=== PATIENT | female | born 1930 | race Caucasian/White ===

== ENCOUNTER 2016-04-20 16:29 | Emergency (ER) | payer OTHER, MEDICARE ==
[~2016-04-20] VITALS: Ht 152.4 cm; Wt 63.5 kg
[~2016-04-20 16:29] MED LIST: ASPIRIN81 M4 PO; ATORVASTATIN CA80 M1 PO; CARAFATE1 GM/10 M1 PO; CARAFATE1 GM/10 ML PO; HYDROXYZINE HCL25 MG PO; LISINOPRIL5 M1 PO; METOPROLOL SUCC25 M1 PO; OMEPRAZOLE20 M2 PO; ONDANSETRON ODT8 M1 PO; PROTONIX40 M3 PO; RISPERDAL0.25 MG PO; TRAZODONE HCL50 M1 PO; ZOFRAN ODT4 MG PO
--- NOTE | 2016-04-20 16:53 | ED DYSPNEA/ASTHMA COMPLAINT ---
History of Present Illness General Chief Complaint: Dyspnea (COPD, CHF, Other) Stated Complaint: SENT BY URGENT CARE IN [place] FOR SOB Source: patient, family Exam Limitations: no limitations Vital Signs & Intake/Output Vital Signs & Intake/Output Vital Signs Date Time Temp Pulse Resp B/P Pulse O2 O2 Flow FiO2 Ox Delivery Rate 04/20 1640 98.4 69 18 103/62 98 Room Air Allergies Coded Allergies: Penicillins (ANAPHYLAXIS 04/20/16) Reconcile Medications Albuterol Sulfate (Proair Hfa) 90 MCG HFA.AER.AD 2 PUF INH Q4-6 PRN PRN DYSPNEA DISPENSE WITH SPACER Aspirin (Aspirin*) 81 MG TAB.CHEW 1 TAB PO DAILY heart health Lisinopril 5 MG TABLET 1 TAB PO DAILY HEART Metoprolol Succinate 25 MG TAB 6.25 MG PO BID HEART Omeprazole 20 MG CAPSULE.DR 40 MG PO DAILY AC GERD Prednisolone Sod Phosphate 15 MG/5 ML (5 ML) SOLUTION 5 ML PO BID BRONCHITIS Sucralfate (Carafate) 1 GRAM/10 ML ORAL.SUSP 10 ML PO BID CONSTIPATION 1 hour before food Triage Note: PT TO TRIAGE FROM URGENT CARE FOR UDNORMAL CHEST XRAY AND SOB/WHEEZING WITH EXERTION. PT HAS CHEST XRAY DISC WITH HER. NO RESP DISTRESS NOTED IN TRIAGE. VSS. O2SAT 98 ON RA. PT DENIES ANY PAIN. PT TO ROOM4 BY WHEELCHAIR. Triage Nurses Notes Reviewed? yes Onset: Gradual Duration: day(s): (few) Timing: recent history Severity: mild Activities at Onset: none Modifying Factors: Worsens With: movement. Associated Symptoms: cough, wheezing HPI: This is an 86-year-old female who presents with her family from an urgent care for evaluation of an outpatient chest x-ray. He took her there for some shortness of breath and wheezy wheezing noted on exertion. According to the PA did a chest x-ray which was concerning for pneumothorax. He told me that there was a hypodensity that he was concerned about. Patient with known history of hiatal hernia. Upon evaluation in the emergency department patient states that she does not know why she is here. The daughter states that she was at her adult daycare program and they told her that she had some audible wheezing today. Past History Travel History Traveled to [place] past 21 day No Medical History Any Pertinent Medical History? see below for history Neurological: dementia EENT: UNKNOWN Cardiovascular: CAD Respiratory: UNKNOWN Gastrointestinal: GERD, hiatal hernia Hepatic: UNKNOWN Renal: UNKNOWN Musculoskeletal: UNKNOWN Psychiatric: UNKNOWN Endocrine: UNKNOWN Blood Disorders: UNKNOWN Cancer(s): UNKNOWN HOME MAKER/Reproductive: UNKNOWN History of MRSA: No History of VRE: No History of CDIFF: No Surgical History Surgical History: non-contributory Psychosocial History Who do you live with Daughter What is your primary language Albanian Tobacco Use: Never used Family History Hx Contributory? No Review of Systems Review of Systems Constitutional: Denies: fever. EENTM: Reports: no symptoms. Respiratory: Reports: cough, short of breath. Cardiovascular: Denies: chest pain, palpitations. GI: Denies: abdominal pain, diarrhea, vomiting. Genitourinary: Denies: discharge, dysuria. Musculoskeletal: Reports: no symptoms. Skin: Reports: no symptoms. Neurological/Psychological: Reports: no symptoms. Hematologic/Endocrine: Denies: bruising, bleeding, polyuria, polydipsia. Immunologic/Allergic: Denies: splenectomy. All Other Systems: Reviewed and Negative Physical Exam Physical Exam General Appearance: alert, awake, mild distress, thin Head: atraumatic, normal appearance Eyes: Bilateral: normal appearance, PERRL, EOMI. Ears, Nose, Throat: normal pharynx, normal ENT inspection, hearing grossly normal Neck: normal inspection, supple, full range of motion Respiratory: decreased breath sounds, wheezing (end expiratory ) Cardiovascular: regular rate/rhythm Peripheral Pulses: 2+ radial (R), 2+ radial (L) Gastrointestinal: soft, non-tender Extremities: normal inspection, normal range of motion, no edema Neurologic/Psych: awake, alert, oriented x 1 Skin: intact Core Measures ACS in differential dx? No Severe Sepsis Present: No Septic Shock Present: No Progress Differential Diagnosis: bronchitis, CHF, COPD, pulmonary embolism, pneumothorax, URI Plan of Care: Orders Procedure Date/time Status RT ED ORDERS 04/20 1716 Active EKG 04/20 1631 Active Chest x-ray was uploaded in the emergency department shows large hiatal hernia with an air-fluid level, no evidence of pneumothorax. DUONEB, DECADRON GIVEN. PATIENT AMBUATORY IN THE ED WITHOUT DISTRESS, ANXIOUS TO LEAVE. DISCUSSED CARE PLAN WITH HER FAMILY MEMBERS. SHE WILL STAY HOME FROM ADULT DAYCARE TOMORROW AND FOLLOW UP WITH PCP. THEY WILL RETURN HER FOR FEVER, CHEST PAIN OR WORSENING SHORTNESS OF BREATH. RX SENT TO PHARMACY. ([facility]) Initial ED EKG: SINUS BRADYCARDIA Departure Departure Time of Disposition: 1807 Disposition: HOME OR SELF CARE Condition: Stable Clinical Impression Primary Impression: Bronchitis Referrals: UNKNOWN Additional Instructions: Have your mother take the prescriptions as directed. Please follow up with her doctor in the office. Return immediately to the ER for any worsening shortness of breath, fever, cough, chills. Departure Forms: Customer Survey General Discharge Information Prescriptions: Current Visit Scripts Albuterol Sulfate (Proair Hfa) 2 PUF INH Q4-6 PRN PRN DYSPNEA #1 INHAL DISPENSE WITH SPACER Prednisolone Sod Phosphate 5 ML PO BID #30 ML Critical Care Note Critical Care Note Critical Care Time: non-applicable
[2016-04-20] MEDS ORDERED: PROAIR HFA8.5 GM INH (18:08)
[2016-04-20] MEDS ORDERED: PREDNISOLO15 MG/5 M3 PO (18:08)
[2016-04-20 18:36] VITALS: BP 108/64
== END 2016-04-20 18:37 ==
LOC: ERH 16:29
DX: J40 Bronchitis, not specified as acute or chronic (principal)
CPT/HCPCS: 1263; 93005; 93010

== ENCOUNTER 2016-06-11 15:00 | Emergency (ER) | payer OTHER, MEDICARE ==
[~2016-06-11] VITALS: Ht 160 cm; Wt 56.7 kg
[~2016-06-11 15:00] MED LIST changes: +PREDNISOLO15 MG/5 M3 PO; +PROAIR HFA8.5 GM INH
--- NOTE | 2016-06-11 15:21 | NUR ---
86 Y/O FEMALE SENT FROM DR HARRIS'S OFFICE FOR EVAL OF RUQ PAIN SINCE TODAY. FAMILY MEMBER STATES SHE PICKED PT UP TODAY FROM [facility] AND SHE WAS INFORMED PT HAD BEEN C/O RUQ PAIN. NO KNOWN N/V/D. AFEBRILE. PT APPEARS UNCOMFORTABLE IN TRIAGE GUARDING RUQ. TAKEN FOR EKG/BLOODWORK
--- NOTE | 2016-06-11 15:50 | ED GI/GU/ABDOMINAL COMPLAINT ---
History of Present Illness General Chief Complaint: Abdominal Pain/Flank Pain Stated Complaint: RUQ ABD PAIN, SENT DOWN BY DR. HARRIS Source: patient, family, old records Exam Limitations: no limitations Vital Signs & Intake/Output Vital Signs & Intake/Output Vital Signs Date Time Temp Pulse Resp B/P Pulse O2 O2 Flow FiO2 Ox Delivery Rate 06/11 1506 98.5 73 16 141/76 95 Room Air Allergies Coded Allergies: Penicillins (ANAPHYLAXIS 04/20/16) Reconcile Medications Albuterol Sulfate (Proair Hfa) 90 MCG HFA.AER.AD 2 PUF INH Q4-6 PRN PRN DYSPNEA DISPENSE WITH SPACER Aspirin (Aspirin*) 81 MG TAB.CHEW 1 TAB PO DAILY heart health Lisinopril 5 MG TABLET 1 TAB PO DAILY HEART Metoprolol Succinate 25 MG TAB 6.25 MG PO BID HEART Omeprazole 20 MG CAPSULE.DR 40 MG PO DAILY AC GERD Prednisolone Sod Phosphate 15 MG/5 ML (5 ML) SOLUTION 5 ML PO BID BRONCHITIS Sucralfate (Carafate) 1 GRAM/10 ML ORAL.SUSP 10 ML PO BID CONSTIPATION 1 hour before food Triage Note: 86 Y/O FEMALE SENT FROM DR HARRIS'S OFFICE FOR EVAL OF RUQ PAIN SINCE TODAY. FAMILY MEMBER STATES SHE PICKED PT UP TODAY FROM [facility] AND SHE WAS INFORMED PT HAD BEEN C/O RUQ PAIN. NO KNOWN N/V/D. AFEBRILE. PT APPEARS UNCOMFORTABLE IN TRIAGE GUARDING RUQ. TAKEN FOR EKG/BLOODWORK Triage Nurses Notes Reviewed? yes ? N Is pt currently ? No HPI: Patient was at her cardiology appointment for routine follow-up when she began having right upper quadrant pain. Patient was sent out of the emergency department for evaluation. The patient has dementia so it is difficult to ascertain exact history other than to state that she has right upper quadrant pain. Patient is unsure how long its been going on. Patient states that the pain does not go anywhere. Unknown aggravating or mitigating factors. Patient winces to palpation but cannot give any pain scale number. Past History Travel History Traveled to [place] past 21 day No Medical History Any Pertinent Medical History? see below for history Neurological: dementia EENT: UNKNOWN Cardiovascular: CAD Respiratory: UNKNOWN Gastrointestinal: GERD, hiatal hernia Hepatic: UNKNOWN Renal: UNKNOWN Musculoskeletal: UNKNOWN Psychiatric: UNKNOWN Endocrine: UNKNOWN Blood Disorders: UNKNOWN Cancer(s): UNKNOWN VICE PRESIDENT FOR PHILANTHROPY/Reproductive: UNKNOWN History of MRSA: No History of VRE: No History of CDIFF: No Surgical History Surgical History: non-contributory Psychosocial History Who do you live with Daughter What is your primary language Uzbek Tobacco Use: Never used ETOH Use: denies use Illicit Drug Use: denies illicit drug use Family History Hx Contributory? No Review of Systems Review of Systems Constitutional: Reports: no symptoms. EENTM: Reports: no symptoms. Respiratory: Reports: no symptoms. Cardiovascular: Reports: no symptoms. GI: Reports: see HPI, abdominal pain. Genitourinary: Reports: no symptoms. Musculoskeletal: Reports: no symptoms. Skin: Reports: no symptoms. Neurological/Psychological: Reports: no symptoms. Hematologic/Endocrine: Reports: no symptoms. Immunologic/Allergic: Reports: no symptoms. All Other Systems: Reviewed and Negative Physical Exam Physical Exam General Appearance: well developed/nourished, alert, awake, mild distress Head: atraumatic, normal appearance Eyes: Bilateral: PERRL, EOMI. Ears, Nose, Throat, Mouth: hearing grossly normal, moist mucous membrane Neck: normal inspection, supple, full range of motion Respiratory: normal breath sounds, chest non-tender, no respiratory distress, lungs clear Cardiovascular: regular rate/rhythm, normal peripheral pulses Gastrointestinal: normal bowel sounds, soft, tenderness (RUQ), + OLIVER'S, PATIENT ALSO HAS SLIGHT TENDERNESS TO DEEP PALPATION IN THE RIGHT LOWER QUADRANT. tHERE IS NO GUARDING OR REBOUND IN THE RIGHT LOWER QUADRANT. Back: normal inspection, normal range of motion Extremities: normal range of motion Neurologic/Psych: no motor/sensory deficits, awake, alert, oriented x 3, normal mood/affect Skin: intact, normal color, warm/dry Core Measures ACS in differential dx? No Severe Sepsis Present: No Septic Shock Present: No Progress Differential Diagnosis: appendicitis, biliary colic, cholecystitis, diverticulitis, gastritis, hepatitis, ischemic bowel, inflamm bowel dis, pancreatitis Plan of Care: Orders Procedure Date/time Status Intake & Output 06/11 1709 Active TROPONIN LEVEL 06/11 1512 Complete LIPASE 06/11 1512 Complete COMPREHENSIVE METABOLIC PANEL 06/11 1512 Complete CBC WITHOUT DIFFERENTIAL 06/11 1512 Complete AMYLASE 06/11 1512 Complete EKG 06/11 1512 Active Laboratory Tests 06/11/16 1533: Anion Gap 7, Estimated GFR > 60, BUN/Creatinine Ratio 32.9 H, Glucose 88, Calcium 9.2, Total Bilirubin 0.4, AST 34, ALT 41, Alkaline Phosphatase 93, Troponin I < 0.01, Total Protein 6.4, Albumin 3.4 L, Globulin 3.0, Albumin/ Globulin Ratio 1.1, Amylase < 30 L, Lipase 139, CBC w Diff NO MAN DIFF REQ, RBC 4.41, MCV 96.6, MCH 32.0 H, RDW 14.2, MPV 9.6, Gran % 62.7, Lymphocytes % 23.7, Monocytes % 11.3 H, Eosinophils % 1.7, Basophils % 0.6, Absolute Granulocytes 4.0, Absolute Lymphocytes 1.5, Absolute Monocytes 0.7 H, Absolute Eosinophils 0.1, Absolute Basophils 0, PUBS MCHC 33.2 Diagnostic Imaging: Viewed by Me: Ultrasound. Discussed w/RAD: Ultrasound. Radiology Impression: SEE BELOW, PATIENT: CONCEPCION PAT PRESENT AGE: 86 PATIENT ACCOUNT NO: [id number] : [birth year] LOCATION: [facility] ORDERING PHYSICIAN: MAGDALENA MAR MD SERVICE DATE: 06/11/16 EXAM TYPE: CAT - CT ABD & PELVIS W/O IV CONTRAS EXAMINATION: CT ABDOMEN AND PELVIS WITHOUT CONTRAST CLINICAL INFORMATION: Right lower quadrant abdominal tenderness. Evaluate for appendicitis. COMPARISON: Limited abdominal ultrasound of 06/11/2016, upper GI series of 06/06/[address] abdomen and pelvis of 12/23/2015. TECHNIQUE: Multidetector volumetric imaging was performed from the superior aspect of the liver through the pubic symphysis. Sagittal and coronal reformatted images were obtained on the technologist's workstation. DLP: 311.66 mGy-cm FINDINGS: OFFICE SERVICES ASSOCIATE: Reverse S-shaped scoliosis of the visualized thoracolumbar spine is noted. There are scattered hyperdensities in the pelvis as well as in the left hemiabdomen with the most prominent hyperdensity overlying the right lower abdominal quadrant representing residual barium. Multiple streaking artifacts are present from this residual barium somewhat limiting the evaluation. LUNG BASES: There is a large hiatal hernia containing almost the entire stomach and a significant portion of the transverse colon. A portion of the pancreas is also seen in the hernial sac. Trace left pleural effusion is a stable finding. Bibasilar subsegmental atelectasis. No pericardial effusion. LIVER, GALLBLADDER, AND BILIARY TREE: The liver is normal in size, shape, and attenuation. No focal hepatic lesion or biliary ductal dilatation is present. The gallbladder is unremarkable with no evidence of radiopaque gallstones, gallbladder wall thickening, or obvious pericholecystic inflammatory changes. PANCREAS: A portion of the pancreas is herniated into the chest, otherwise unremarkable. SPLEEN: Unremarkable. ADRENAL GLANDS: Unremarkable. KIDNEYS AND URETERS: The kidneys are normal in size, shape, and attenuation. No hydronephrosis, hydroureter, or calculi are seen. No perinephric stranding. BLADDER: Underdistended, however, unremarkable. GASTROINTESTINAL TRACT: Extensive diverticulosis of the descending colon and sigmoid colon with residual barium in multiple diverticula. Residual barium is also noted in the terminal ileum. Streaking artifacts from the residual barium limit the evaluation. The appendix is normal (series 2, image 67, sagittal series 601, images 85 through 82. No pericecal inflammatory changes are noted. No abnormal bowel dilatation. No evidence of colonic wall thickening or pericolonic fat stranding. ABDOMINAL WALL: No significant hernia is appreciated. LYMPH NODES: No pathologically enlarged lymph nodes are noted. VASCULAR: Moderate to extensive calcific atherosclerosis of the aorta and mild calcific atherosclerosis of the iliac arteries. No aneurysmal dilatation. PELVIC VISCERA: The uterus is not seen, either significantly atrophic or surgically absent. No adnexal mass. OSSEOUS STRUCTURES: Diffuse osseous demineralization. Moderate compression fracture of T11 is stable since the previous CT. Axwkdbsx-qj-shyurl compression fracture of T9 is a new finding compared to the previous CT. Diffuse facet arthropathy is noted. IMPRESSION: 1. Streaking artifacts from the residual barium into the terminal ileum and colon limits the evaluation, however, a normal appendix is seen. No pericecal inflammatory changes are noted. No acute abnormalities identified to explain patient's symptoms. 2. No evidence of radiopaque urinary tract calculi or obstructive uropathy. 3. Large hiatal hernia containing stomach , colon and a portion of the pancreas is a known finding. 4. Frsatpip-xg-yagpqh compression fracture of the T9 body is of indeterminate age, new compared to the previous CT of 12/23/2015. DICTATED BY: BRENDA BRITT MD DATE/TIME DICTATED:2019 TORSION SPRING COILING MACHINE SETTER:MELODY DATE/TIME TRANSCRIBED:06/11/162019 CONFIDENTIAL, DO NOT COPY WITHOUT APPROPRIATE AUTHORIZATION. <Electronically signed in Other Vendor System> SIGNED BY: BRENDA BRITT MD 06/11/162057 Initial ED EKG: NSR, nonspecific ST T wave chg Prior EKG: unchanged Comments: PATIENT: CONCEPCION PAT PRESENT AGE: 86 PATIENT ACCOUNT NO: [id number] : [birth year] LOCATION: [facility] ORDERING PHYSICIAN: MAGDALENA MAR MD SERVICE DATE: 06/11/16 EXAM TYPE: US - US-LIMITED ABDOMEN EXAMINATION: US ABDOMEN LIMITED CLINICAL INFORMATION: Right upper quadrant pain; question cholecystitis. COMPARISON: CT abdomen and pelvis dated 12/23/2015. TECHNIQUE: Real-time imaging of the right upper quadrant abdominal viscera. FINDINGS: PANCREAS: Poorly seen secondary to overlapping the bowel gas. LIVER: Limited visualization secondary to overlapping bowel gas. The liver demonstrates normal size, contour and echogenicity. No focal lesion or intrahepatic biliary duct dilatation. GALLBLADDER: Normal. The gallbladder is physiologically distended without evidence of stones, sludge, polyps, wall thickening or pericholecystic fluid. COMMON BILE DUCT: Normal in caliber measuring 0.3 cm in diameter. RIGHT KIDNEY: Normal. No hydronephrosis. No renal calculi or focal parenchymal lesions. The kidney measures 8.9 cm in maximum dimension. FREE FLUID: None. IMPRESSION: Unremarkable limited abdominal ultrasound examination. Visualization, in particular of the liver, common bile duct and pancreas, is suboptimal due to overlapping bowel gas. DICTATED BY: SURAJ TABARES MD DATE/TIME DICTATED:06/11/161619 TORSION SPRING COILING MACHINE SETTER:MELODY DATE/TIME TRANSCRIBED:06/11/161619 CONFIDENTIAL, DO NOT COPY WITHOUT APPROPRIATE AUTHORIZATION. <Electronically signed in Other Vendor System> SIGNED BY: SURAJ TABARES MD 06/11/161624 Departure Departure Disposition: HOME OR SELF CARE Condition: Stable Clinical Impression Primary Impression: Upper abdominal pain, unspecified Referrals: NITO HUDDLESTON MD (PCP/Family) Additional Instructions: RETURN IF SYMPTOMS WORSEN OR FOR ANY CONCERNS Departure Forms: Customer Survey General Discharge Information
[2016-06-11 15:54] LABS: ABSOLUTE BASOPHIL COUNT 0 /CUMM (0.0-0.2); ABSOLUTE EOSINOPHIL COUNT 0.1 /CUMM (0.0-0.7); ABSOLUTE LYMPH COUNT 1.5 /CUMM (1.2-3.4); ABSOLUTE MONOCYTE COUNT 0.7 /CUMM (0.10-0.60); BASOPHIL % 0.6 % (0.0-2.0); EOSINOPHIL % 1.7 % (0-5); GRANULOCYTE % 62.7 % (42.2-75.2); HEMATOCRIT 42.6 % (37-47); MEAN CORPUSCULAR HGB CONC 33.2 G/DL (33.0-37.0); MEAN CORPUSCULAR VOLUME 96.6 FL (81.0-99.0); MEAN PLATELET VOLUME 9.6 FL (7.4-10.4); PLATELET COUNT 205 /CUMM (130-400); RBC DISTRIBUTION WIDTH 14.2 % (11.5-14.5); RED BLOOD CELL CT 4.41 /CUMM (4.20-5.40); WHITE BLOOD CELL COUNT 6.4 /CUMM (4.8-10.8)
--- NOTE | 2016-06-11 16:22 | NUR ---
TO AND FROM US. PLACED MON MONITOR, SINUS RHYTHM. ALERT, C/O RUQ PAIN, DAUGHTER AT BEDSIDE. EXAMINED BY DR. MAR.
--- NOTE | 2016-06-11 16:25 | ULTRASOUND REPORT ---
EXAMINATION: US ABDOMEN LIMITED CLINICAL INFORMATION: Right upper quadrant pain; question cholecystitis. COMPARISON: CT abdomen and pelvis dated 12/23/2015. TECHNIQUE: Real-time imaging of the right upper quadrant abdominal viscera. FINDINGS: PANCREAS: Poorly seen secondary to overlapping the bowel gas. LIVER: Limited visualization secondary to overlapping bowel gas. The liver demonstrates normal size, contour and echogenicity. No focal lesion or intrahepatic biliary duct dilatation. GALLBLADDER: Normal. The gallbladder is physiologically distended without evidence of stones, sludge, polyps, wall thickening or pericholecystic fluid. COMMON BILE DUCT: Normal in caliber measuring 0.3 cm in diameter. RIGHT KIDNEY: Normal. No hydronephrosis. No renal calculi or focal parenchymal lesions. The kidney measures 8.9 cm in maximum dimension. FREE FLUID: None. IMPRESSION: Unremarkable limited abdominal ultrasound examination. Visualization, in particular of the liver, common bile duct and pancreas, is suboptimal due to overlapping bowel gas.
--- NOTE | 2016-06-11 17:11 | NUR ---
PER DAUGHTER, PT HAS DEMENTA, HAS ANGER EPSIODES FREQUENTLY AT HOME, ANGRY ABOUT BEING IN HOSPITAL. DENIES PAIN.
--- NOTE | 2016-06-11 17:24 | NUR ---
AGITATE, PULLED OUT IV , RESTARTED. PULLING GOWN OFF AND ATTEMPTING TO GET OOB.
--- NOTE | 2016-06-11 17:58 | NUR ---
TO CT SCAN, PULLED OUT IV IN CT SCAN.
--- NOTE | 2016-06-11 18:15 | NUR ---
RETURNED FROM CT SCAN.
--- NOTE | 2016-06-11 18:28 | NUR ---
SITTING UP IN CHAIR.
--- NOTE | 2016-06-11 20:30 | NUR ---
ATTEMPTED TWICE TO CALLED CAT SCAN TO SEE WHY RESULTS HAVE NOT BEEN READ, CHARGE NURSE JOSE MADE AWARE
--- NOTE | 2016-06-11 20:40 | NUR ---
CHARGE NURSE JOSE AT BEDSIDE TO EXPLAIN WHY CAT SCAN RESULTS ARE STILL PENDING.
--- NOTE | 2016-06-11 20:58 | CT SCAN REPORT ---
EXAMINATION: CT ABDOMEN AND PELVIS WITHOUT CONTRAST CLINICAL INFORMATION: Right lower quadrant abdominal tenderness. Evaluate for appendicitis. COMPARISON: Limited abdominal ultrasound of 06/11/2016, upper GI series of 06/06/[address] abdomen and pelvis of 12/23/2015. TECHNIQUE: Multidetector volumetric imaging was performed from the superior aspect of the liver through the pubic symphysis. Sagittal and coronal reformatted images were obtained on the technologist's workstation. DLP: 311.66 mGy-cm FINDINGS: SET UP AND LAY OUT INSPECTOR: Reverse S-shaped scoliosis of the visualized thoracolumbar spine is noted. There are scattered hyperdensities in the pelvis as well as in the left hemiabdomen with the most prominent hyperdensity overlying the right lower abdominal quadrant representing residual barium. Multiple streaking artifacts are present from this residual barium somewhat limiting the evaluation. LUNG BASES: There is a large hiatal hernia containing almost the entire stomach and a significant portion of the transverse colon. A portion of the pancreas is also seen in the hernial sac. Trace left pleural effusion is a stable finding. Bibasilar subsegmental atelectasis. No pericardial effusion. LIVER, GALLBLADDER, AND BILIARY TREE: The liver is normal in size, shape, and attenuation. No focal hepatic lesion or biliary ductal dilatation is present. The gallbladder is unremarkable with no evidence of radiopaque gallstones, gallbladder wall thickening, or obvious pericholecystic inflammatory changes. PANCREAS: A portion of the pancreas is herniated into the chest, otherwise unremarkable. SPLEEN: Unremarkable. ADRENAL GLANDS: Unremarkable. KIDNEYS AND URETERS: The kidneys are normal in size, shape, and attenuation. No hydronephrosis, hydroureter, or calculi are seen. No perinephric stranding. BLADDER: Underdistended, however, unremarkable. GASTROINTESTINAL TRACT: Extensive diverticulosis of the descending colon and sigmoid colon with residual barium in multiple diverticula. Residual barium is also noted in the terminal ileum. Streaking artifacts from the residual barium limit the evaluation. The appendix is normal (series 2, image 67, sagittal series 601, images 85 through 82. No pericecal inflammatory changes are noted. No abnormal bowel dilatation. No evidence of colonic wall thickening or pericolonic fat stranding. ABDOMINAL WALL: No significant hernia is appreciated. LYMPH NODES: No pathologically enlarged lymph nodes are noted. VASCULAR: Moderate to extensive calcific atherosclerosis of the aorta and mild calcific atherosclerosis of the iliac arteries. No aneurysmal dilatation. PELVIC VISCERA: The uterus is not seen, either significantly atrophic or surgically absent. No adnexal mass. OSSEOUS STRUCTURES: Diffuse osseous demineralization. Moderate compression fracture of T11 is stable since the previous CT. Obisgvfy-ix-xarasu compression fracture of T9 is a new finding compared to the previous CT. Diffuse facet arthropathy is noted. IMPRESSION: 1. Streaking artifacts from the residual barium into the terminal ileum and colon limits the evaluation, however, a normal appendix is seen. No pericecal inflammatory changes are noted. No acute abnormalities identified to explain patient's symptoms. 2. No evidence of radiopaque urinary tract calculi or obstructive uropathy. 3. Large hiatal hernia containing stomach, colon and a portion of the pancreas is a known finding. 4. Nybahhfn-dz-afnbpg compression fracture of the T9 body is of indeterminate age, new compared to the previous CT of 12/23/2015.
[2016-06-11 21:10] VITALS: BP 152/80
--- NOTE | 2016-06-11 21:29 | NUR ---
PT CLEARED FOR DISHCARGE BY . PT DAUGHTER VERBALIZED DC UNDERSTANDING.
== END 2016-06-11 21:30 ==
LOC: ERH 15:00 → ERHI 16:01 → ERH 21:30
PROVIDERS: Emergency Medicine
DX: R10.11 Right upper quadrant pain (principal)
CPT/HCPCS: 74176; 93005; 93010; 96374; 96375; J0131

== ENCOUNTER 2016-06-30 15:24 | Emergency (ER) | payer OTHER, MEDICARE ==
[~2016-06-30] VITALS: Ht 160 cm; Wt 56.7 kg
--- NOTE | 2016-06-30 15:56 | ED UPPER/LOWER EXTREMITY COMPL ---
History of Present Illness General Chief Complaint: Lower Extremity Problems Stated Complaint: rt extr swelling Source: patient, family, old records Exam Limitations: dementia Vital Signs & Intake/Output Vital Signs & Intake/Output Vital Signs Date Time Temp Pulse Resp B/P Pulse O2 O2 Flow FiO2 Ox Delivery Rate 06/30 1732 96.0 73 12 144/65 98 Room Air 06/30 1653 Room Air 06/30 1527 98.3 74 18 130/74 95 Room Air ED Intake and Output 07/01 0000 06/30 1200 Intake Total Output Total Balance Patient 125 lb Weight Allergies Coded Allergies: Penicillins (ANAPHYLAXIS 04/20/16) Reconcile Medications Cholecalciferol (Vitamin D3) (Unknown Strength) TABLET (Unknown Dose) PO DAILY SUPPLEMENT (Reported) Donepezil HCl (Donepezil HCl Odt) (Unknown Strength) TAB.RAPDIS (Unknown Dose) UNKNOWN (Reported) Methylcellulose (Citrucel) (Unknown Strength) TABLET (Unknown Dose) PO DAILY SUPPLEMENT (Reported) Mirtazapine 7.5 MG TABLET 1 TAB PO QPM APPETITE/ANXIETY (Reported) Sennosides (Senokot) 8.6 MG TABLET 1 TAB PO DAILY GI (Reported) Triage Note: PT TO TRIAGE WITH FAMILY , DAUGHTER STATES THAT SHE NOTED SOME SWELLING TO RLE FROM KNEE DOWN , PT OFFERS NO COMPLAINTS BUT HAS HISTORY OF DEMENTIA. PT NOTED WITH SWELLING Triage Nurses Notes Reviewed? yes Onset: Abrupt Duration: day(s): (1) HPI: 86 year old female with history of dementia and coronary disease presents to the ER with a chief complaint per her daughter of right-sided knee pain and leg swelling. Daughter states she got a call from the nurse at the [facility] and stated that the mother's leg was swollen and painful. No trauma. No fever or chills. She states that the leg does not look very different than usual. He does complaint of some knee pain. She has a known history of osteoporosis. No previous history of DVT. Nurse Association was concerned that she might have a clot in her leg. Patient denies any chest pain or shortness of breath. She was active and for [place] and was walking without any difficulties. Past History Travel History Traveled to [place] past 21 day No Medical History Any Pertinent Medical History? see below for history Neurological: dementia EENT: UNKNOWN Cardiovascular: CAD Respiratory: UNKNOWN Gastrointestinal: GERD, hiatal hernia Hepatic: UNKNOWN Renal: UNKNOWN Musculoskeletal: UNKNOWN Psychiatric: UNKNOWN Endocrine: UNKNOWN Blood Disorders: UNKNOWN Cancer(s): UNKNOWN MOTOR POWER CONNECTOR/Reproductive: UNKNOWN History of MRSA: No History of VRE: No History of CDIFF: No Surgical History Surgical History: non-contributory Psychosocial History Who do you live with Daughter What is your primary language Russian Tobacco Use: Never used ETOH Use: denies use Illicit Drug Use: denies illicit drug use Family History Hx Contributory? No Review of Systems Review of Systems Constitutional: Denies: fever. EENTM: Reports: no symptoms. Respiratory: Denies: cough. Cardiovascular: Reports: peripheral edema. Denies: chest pain, palpitations. Gastrointestinal/Abdominal: Reports: no symptoms. Genitourinary: Reports: no symptoms. Musculoskeletal: Reports: joint pain. Denies: joint swelling. Skin: Denies: rash. Neurological/Psychological: Reports: no symptoms. Hematologic/Endocrine: Denies: bruising, bleeding, polyuria, polydipsia. Immunological: Reports: no symptoms. All Other Systems: Reviewed and Negative Physical Exam Physical Exam General Appearance: well developed/nourished, alert, awake, mild distress Head: atraumatic Eyes: Bilateral: PERRL, EOMI. Ears, Nose, Throat: normal pharynx, normal ENT inspection, hearing grossly normal Neck: normal inspection, supple Cardiovascular/Respiratory: regular rate/rhythm Back: normal inspection Leg Left: normal range of motion, normal inspection Leg Right: swelling, EDEMA Hip Left: normal range of motion, normal inspection Hip Right: normal range of motion, normal inspection Knee Left: normal range of motion, normal inspection Knee Right: normal range of motion, normal inspection Foot Left: normal inspection, normal range of motion Foot Right: swelling Neurologic/Tendon: normal sensation, normal motor functions, normal tendon functions Skin: intact, normal color, warm/dry Lymphatic: no anterior cervical irene Progress Differential Diagnosis: compartment syndrome, DVT, ARTHRITIS, BAKERS CYST, DEPENDENT EDEMA Plan of Care: Orders Procedure Date/time Status US-UNILATERAL VENOUS DOPPLER 06/30 1613 Active Diagnostic Imaging: Viewed by Me: Radiology Read, Ultrasound. Discussed w/RAD: Radiology Read, Ultrasound. Radiology Impression: PATIENT: CONCEPCION PAT PRESENT AGE: 86 PATIENT ACCOUNT NO: [id number] : [birth year] LOCATION: [facility] ORDERING PHYSICIAN: ANT LEWIS MD SERVICE DATE: 06/30/16 EXAM TYPE: RAD - XRY -KNEE COMPLETE RIGHT EXAMINATION: XR KNEE, RIGHT CLINICAL INFORMATION: Right knee pain. No history of trauma. COMPARISON: None TECHNIQUE: Four views of the right knee. FINDINGS: There is no acute fracture or subluxation. The bones are osteopenic. There is severe lateral compartment joint space narrowing. Prominent tricompartmental osteophytes are present. There is a small joint effusion. Surgical clips are seen in the soft tissues. IMPRESSION: No acute fracture or malalignment. Tricompartmental degenerative changes which are most severe laterally. DICTATED BY: ABDULAZIZ DEMARCO MD DATE/TIME DICTATED:06/30/161649 [facility] OFFICER:MELODY DATE/TIME TRANSCRIBED:06/30/161649 CONFIDENTIAL, DO NOT COPY WITHOUT APPROPRIATE AUTHORIZATION. <Electronically signed in Other Vendor System> SIGNED BY: ABDULAZIZ DEMARCO MD 06/30/161657, PATIENT: CONCEPCION PAT PRESENT AGE: 86 PATIENT ACCOUNT NO: [id number] : [birth year] LOCATION: [facility] ORDERING PHYSICIAN: ANT LEWIS MD SERVICE DATE: 06/30/16 EXAM TYPE: US - US-UNILATERAL VENOUS DOPPLER EXAMINATION: DOPPLER VENOUS ULTRASOUND EXTREMITY, RIGHT CLINICAL INFORMATION: Right lower extremity pain and swelling. COMPARISON: None. TECHNIQUE: Grayscale, Doppler and spectral analysis of the lower extremity was performed. FINDINGS: There is no evidence for a deep venous thrombosis within the visualized lower extremity veins. There is normal flow, compression and augmentation. ADDITIONAL FINDINGS: There is a Lee's cyst within the popliteal region with extension of fluid into the proximal calf. IMPRESSION: No evidence for deep venous thrombosis. Lee's cyst with evidence of rupture of fluid into the proximal calf. DICTATED BY: RADHA CHAKRABORTY MD DATE/TIME DICTATED:06/30/161815 [facility] OFFICER:MELODY DATE/TIME TRANSCRIBED:06/30/161815 CONFIDENTIAL, DO NOT COPY WITHOUT APPROPRIATE AUTHORIZATION. <Electronically signed in Other Vendor System> SIGNED BY: RADHA CHAKRABORTY MD 06/30/161820 Departure Departure Time of Disposition: 1828 Disposition: HOME OR SELF CARE Condition: Stable Clinical Impression Primary Impression: Lee's cyst, ruptured Referrals: NITO HUDDLESTON MD (PCP/Family) SHIMA BALL,MAYDA Additional Instructions: Elevate the leg as much as possible. Ice, rest and Tylenol or ibuprofen as needed for pain. Please follow-up with the primary care doctor and orthopedist listed. Return as needed. Departure Forms: Customer Survey General Discharge Information
[2016-06-30] MEDS ORDERED: MIRTAZAPINE7.5 M1 PO (16:36)
[2016-06-30] MEDS ORDERED: DONEPEZIL HCL OD5 MG (16:36)
[2016-06-30] MEDS ORDERED: CITRUCEL500 M1 PO (16:37)
[2016-06-30] MEDS ORDERED: VITAMIN D31000 UNI2 PO (16:37)
[2016-06-30] MEDS ORDERED: SENOKOT8.6 M2 PO (16:38)
--- NOTE | 2016-06-30 16:58 | RADIOLOGY REPORT ---
EXAMINATION: XR KNEE, RIGHT CLINICAL INFORMATION: Right knee pain. No history of trauma. COMPARISON: None TECHNIQUE: Four views of the right knee. FINDINGS: There is no acute fracture or subluxation. The bones are osteopenic. There is severe lateral compartment joint space narrowing. Prominent tricompartmental osteophytes are present. There is a small joint effusion. Surgical clips are seen in the soft tissues. IMPRESSION: No acute fracture or malalignment. Tricompartmental degenerative changes which are most severe laterally.
[2016-06-30 17:32] VITALS: BP 144/65
--- NOTE | 2016-06-30 18:21 | ULTRASOUND REPORT ---
EXAMINATION: DOPPLER VENOUS ULTRASOUND EXTREMITY, RIGHT CLINICAL INFORMATION: Right lower extremity pain and swelling. COMPARISON: None. TECHNIQUE: Grayscale, Doppler and spectral analysis of the lower extremity was performed. FINDINGS: There is no evidence for a deep venous thrombosis within the visualized lower extremity veins. There is normal flow, compression and augmentation. ADDITIONAL FINDINGS: There is a Lee's cyst within the popliteal region with extension of fluid into the proximal calf. IMPRESSION: No evidence for deep venous thrombosis. Lee's cyst with evidence of rupture of fluid into the proximal calf.
== END 2016-06-30 18:40 ==
LOC: ERH 15:24
DX: M66.0 Rupture of popliteal cyst (principal); M79.89 Other specified soft tissue disorders
CPT/HCPCS: 73562-RT

== ENCOUNTER 2017-11-27 22:31 | Inpatient (IN) | payer OTHER ==
[~2017-11-27 22:31] MED LIST changes: +CITRUCEL500 M1 PO; +DONEPEZIL HCL OD5 MG; +MIRTAZAPINE7.5 M1 PO; +SENOKOT8.6 M2 PO; +VITAMIN D31000 UNI2 PO
[2017-11-28 00:16] VITALS: BP 100/64
--- NOTE | 2017-11-28 03:24 | History & Physical ---
General Information and HPI Chief Complaint: Perforated viscus Source of Information: family, old records Exam Limitations: not alert/orientated History of Present Illness: This patient is a 87-year-old female with a known history of a very large hiatal hernia. The patient has denied their surgery in the past. She presents to the emergency department after perforation. The patient decided with approval for family to treat conservatively on hospice. [facility] contacted and evaluated the patient for admission. Allergies/Medications Allergies: Coded Allergies: Penicillins (ANAPHYLAXIS 04/20/16) Past History Medical History Any Pertinent Medical History? unobtainable Neurological: dementia EENT: UNKNOWN Cardiovascular: CAD Respiratory: UNKNOWN Gastrointestinal: GERD, hiatal hernia Hepatic: UNKNOWN Renal: UNKNOWN Musculoskeletal: UNKNOWN Psychiatric: UNKNOWN Endocrine: UNKNOWN Blood Disorders: UNKNOWN Cancer(s): UNKNOWN SPRING BENDER/Reproductive: UNKNOWN History of MRSA: No History of VRE: No History of CDIFF: No Isolation History: Standard Surgical History Surgical History: CABG Review of Systems Review of Systems: Review of systems unobtainable Review of Systems Constitutional: Reports: see HPI. Exam & Diagnostic Data Last 24 Hrs of Vital Signs/I&O Vital Signs Date Time Temp Pulse Resp B/P B/P Pulse O2 O2 Flow FiO2 Mean Ox Delivery Rate 11/28 0016 97.8 100 22 100/64 91 Room Air Physical Exam: Brief exam per request of family and patient. No obvious areas that we need immediate treatment to help with comfort. Assessment/Plan Assessment: Family and patient wishes for hospice. Hospice nurse at bedside and help with management. Plan: Order protocol used with IV pain management and anxiety controlled with benzodiazepines. Orders entered and will be modified based on enhancing patient comfort.
[2017-11-28 06:00] VITALS: BP 100/68
--- NOTE | 2017-11-28 11:52 | PN- Hospice ---
Subjective Subjective: comfortably lying in bed. She is hospice care for hiatal hernia perforation. Review of Systems Constitutional: Denies: no symptoms, see HPI. EENTM: Denies: no symptoms. Cardiovascular: Denies: no symptoms. Respiratory: Denies: no symptoms. Gastrointestinal: Denies: no symptoms. Genitourinary: Denies: no symptoms. Musculoskeletal: Denies: no symptoms. Skin: Denies: no symptoms. Neurological/Psychological: Denies: no symptoms. Objective Last 24 Hrs of Vital Signs/I&O Vital Signs Date Time Temp Pulse Resp B/P B/P Pulse O2 O2 Flow FiO2 Mean Ox Delivery Rate 11/28 900 Room Air 11/28 0600 97.8 100 22 100/68 92 Room Air 11/28 0016 97.8 100 22 100/64 91 Room Air Intake & Output 11/28 1600 11/28 0800 11/28 0000 Intake Total 20 Output Total Balance 20 Intake, IV 20 Patient 50.349 kg Weight Weight Bed scale Measurement Method Physical Exam General Appearance: no apparent distress Head: atraumatic Ears, Nose, Throat: normal ENT inspection Neck: normal inspection Cardiovascular: regular rate/rhythm Current Medications: Current Medications Sig/Michaelle Start time Last Medication Dose Route Stop Time Status Admin Acetaminophen 650 MG Q4P PRN 11/28 010 AC PO Acetaminophen 650 MG Q4P PRN 11/28 010 AC OR Artificial Tears 2 GTT Q2P PRN 11/28 010 AC OU Bisacodyl 10 MG DAILY NEEDED PRN 11/28 010 AC OR Glycerin 2 SPRAY Q4P PRN 11/28 010 AC PO Glycerin/Mineral Oil 1 BUDDY Q8P PRN 11/28 010 AC TOP Glycopyrrolate 400 MCG Q4P PRN 11/28 010 AC SC Hydromorphone HCl 100 MG Q24H 11/29 0130 AC Dextrose/Water 100 ML IV Hydromorphone HCl 0.5 MG BOLUS ONE 11/28 013 DC 11/28 IV 11/28 013 013 Hydromorphone HCl 100 MG CONTINOUS INFUSION 11/28 010 DC 11/28 Dextrose/Water 100 ML IV 0147 Lorazepam 0.5 MG Q4 11/28 0200 AC 11/28 IV 1130 Lorazepam 0.5 MG Q4P PRN 11/28 0115 AC IV Polyethylene Glycol 17 GM DAILY 11/28 0900 AC PO Prochlorperazine 10 MG Q6P PRN 11/28 0100 AC IV Scopolamine HBr 1 PAT Q72 11/30 0900 AC TOP Scopolamine HBr 1 PAT Q72H 11/28 0100 AC 11/28 TOP 0136 Senna/Docusate Sodium 1 TAB BID 11/28 0005 AC PO Assessment/Plan Hospice Assessment/Recommendations: Family and patient wishes for hospice and comfort care. Problem List: 1. Hiatal hernia 2. Perforated gastric ulcer Attending MD Review Statement Attending Statement Attending Assessment/Plan: continue current care.. patient comfortable in bed. No acute distress.
[2017-11-29 06:20] VITALS: BP 84/50
--- NOTE | 2017-11-29 12:29 | PN- Hospice ---
Subjective Subjective: agonal breathing, comfortable in bed. Review of Systems Constitutional: Denies: no symptoms. Objective Last 24 Hrs of Vital Signs/I&O Vital Signs Date Time Temp Pulse Resp B/P B/P Pulse O2 O2 Flow FiO2 Mean Ox Delivery Rate 11/29 1109 102.5 11/30 619 101.2 100 24 84/50 80 Room Air 11/29 0613 101.2 Intake & Output 11/29 1600 11/29 0800 11/29 0000 Intake Total 30 20 Output Total Balance 30 20 Intake, IV 30 20 Intake, Oral 0 Number 0 Bowel Movements Physical Exam General Appearance: no apparent distress Respiratory: decreased breath sounds Cardiovascular: regular rate/rhythm Abdomen: guarding Current Medications: Current Medications Sig/Michaelle Start time Last Medication Dose Route Stop Time Status Admin Acetaminophen 650 MG Q4P PRN 11/28 010 AC PO Acetaminophen 650 MG Q4P PRN 11/28 010 AC 11/29 [place] 1109 Artificial Tears 2 GTT Q2P PRN 11/28 010 AC OU Bisacodyl 10 MG DAILY NEEDED PRN 11/28 010 AC AK Glycerin 2 SPRAY Q4P PRN 11/28 010 AC PO Glycerin/Mineral Oil 1 BUDDY Q8P PRN 11/28 010 AC TOP Glycopyrrolate 400 MCG Q4P PRN 11/28 010 AC SC Hydromorphone HCl See Dose .Q20 MIN PRN 11/29 1130 AC Insts (1) IV Hydromorphone HCl 100 MG Q24H 11/29 013 DC Dextrose/Water 100 ML IV Hydromorphone HCl 50 MG Q24H 11/29 0130 AC Dextrose/Water 50 ML IV Hydromorphone HCl 50 MG Q24H 11/29 0100 DC 11/29 Dextrose/Water 50 ML IV 0040 Hydromorphone HCl 0 .STK-MED ONE 11/28 1653 DC .ROUTE Hydromorphone HCl 0.6 MG ONCE ONE 11/28 1645 DC 11/28 IV 11/28 164 1709 Lorazepam 0.5 MG Q4 11/28 0200 AC 11/29 IV 1012 Lorazepam 0.5 MG Q4P PRN 11/28 0115 AC IV Polyethylene Glycol 17 GM DAILY 11/28 09 AC PO Prochlorperazine 10 MG Q6P PRN 09/15 0100 AC IV Scopolamine HBr 1 PAT Q72 11/30 0900 AC TOP Scopolamine HBr 1 PAT Q72H 11/28 0100 AC 11/28 TOP 0136 Senna/Docusate Sodium 1 TAB BID 11/28 0005 AC PO Dose Instructions: (1)Hydromorphone HCl: PER HOSPICE TITRATION PROTOCOL Assessment/Plan Hospice Assessment/Recommendations: Pateint comfortable in bed with agonal respirations. family bedside. Addressed family concerns. Attending MD Review Statement Attending Statement Attending Assessment/Plan: continue current care.. patient comfortable in bed. No acute distress.
== END 2017-11-29 12:00 | disposition expired | DRG 391 ==
LOC: 2NA 22:31
DX: K44.9 Diaphragmatic hernia without obstruction or gangrene (principal); K25.1 Acute gastric ulcer with perforation; Z88.0 Allergy status to penicillin; Z51.5 Encounter for palliative care; K21.9 Gastro-esophageal reflux disease without esophagitis
CPT/HCPCS: J0780; J1170